=== PATIENT | male | born 1980 | race Caucasian/White ===

== ENCOUNTER 2023-01-01 09:27 | Day surgery (SDC) | payer OTHER, SELFPAY ==
[2023-01-01 09:58] VITALS: BP 145/98; PULSE 76; RESP 16; TEMP 36.4; O2SAT 97; BMI 34.1
[2023-01-01] MEDS: Lactated Ringers 1,000 ML 15 ML IV (10:02)
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
--- NOTE | 2023-01-01 10:44 | OP.COLON_ITS ---
Patient Name: Terrell Lemos Procedure Date: 01/01/2023 10:15 AM Date of : 1980 Age: 42 Procedure: Colonoscopy Indications: Rectal bleeding Providers: Dae Saldivar MD Medicines: See the Anesthesia note for documentation of the administered medications Patient Profile: Last Colonoscopy: none. The patient's first colonoscopy is today. Complications: No immediate complications. Procedure: Pre-Anesthesia Assessment: - Prior to the procedure, a History and Physical was performed, and patient medications and allergies were reviewed. The patient's tolerance of previous anesthesia was also reviewed. The risks and benefits of the procedure and the sedation options and risks were discussed with the patient. All questions were answered, and informed consent was obtained. Prior Anticoagulants: The patient has taken no anticoagulant or antiplatelet agents. ASA Grade Assessment: II - A patient with mild systemic disease. After reviewing the risks and benefits, the patient was deemed in satisfactory condition to undergo the procedure. After I obtained informed consent, the scope was passed under direct vision. Throughout the procedure, the patient's blood pressure, pulse, and oxygen saturations were monitored continuously. The colonoscope was introduced through the anus and advanced to the cecum, identified by appendiceal orifice and ileocecal valve. The colonoscopy was performed without difficulty. The patient tolerated the procedure well. The quality of the bowel preparation was good. The ileocecal valve and the appendiceal orifice were photographed. Scope In: 10:25:54 AM Scope Withdrawal Time 0 hours 9 minutes 20 seconds Scope Out: 10:38:15 AM Total Procedure Duration Time 0 hours 12 minutes 21 seconds Findings: The digital rectal exam findings include non-thrombosed internal hemorrhoids and internal hemorrhoids that prolapse with straining, but require manual replacement into the anal canal (Grade III). Pertinent negatives include normal prostate (size, shape, and consistency). The colon (entire examined portion) appeared normal. Impression: - Non-thrombosed internal hemorrhoids and internal hemorrhoids that prolapse with straining, but require manual replacement into the anal canal (Grade III) found on digital rectal exam. - The entire examined colon is normal. - No specimens collected. Recommendation: - Discharge patient to home. - Resume previous diet. - Continue present medications. - Repeat colonoscopy in 10 years for screening purposes. - Return to my office in 1 week. Total bleeding is felt secondary to internal hemorrhoidal bleeding. I will recommend to the patient consideration for surgical hemorrhoidectomy. We will have him return to the office to discuss this technique benefits and risks and complications. Procedure Code(s): --- Professional --- 78356, Colonoscopy, flexible; diagnostic, including collection of specimen(s) by brushing or washing, when performed (separate procedure) Diagnosis Code(s): --- Professional --- K64.2, Third degree hemorrhoids K62.5, Hemorrhage of anus and rectum CPT copyright 2021 [employer]. All rights reserved. The codes documented in this report are preliminary and upon senior software engineer review may be revised to meet current compliance requirements. Dae Saldivar MD 01/01/2023 10:43:38 AM This report has been signed electronically. Number of Addenda: 0 Note Initiated On: 01/01/2023 10:15 AM
[2023-01-01 10:45] VITALS: BP 129/91; BP 145/98; PULSE 87; RESP 16; TEMP 36.1; O2SAT 96
[2023-01-01 10:50] VITALS: BP 139/94; BP 145/98; PULSE 89; RESP 17; O2SAT 96
[2023-01-01 10:55] VITALS: BP 132/100; BP 145/98; PULSE 81; RESP 16; O2SAT 96
[2023-01-01 11:00] VITALS: BP 134/98; BP 145/98; PULSE 66; RESP 16; TEMP 36.1; O2SAT 96
[2023-01-01 11:21] VITALS: BP 145/98
== END 2023-01-01 11:22 | disposition home or self-care (01) ==
LOC: EN 09:30 → AC 09:31
PROVIDERS: PCP Internal Medicine; Referring Provider Internal Medicine; Visit Provider Surgery
PROC: 0DJD8ZZ Inspection of Lower Intestinal Tract, Via Natural or Artificial Opening Endoscopic (ICD-10-PCS; CPT 45378; principal; 2023-01-01 10:25)
DX: K62.5 Hemorrhage of anus and rectum (principal); K64.2 Third degree hemorrhoids
CPT/HCPCS: 45378; J7120

== ENCOUNTER 2023-04-24 06:00 | Day surgery (SDC) | payer OTHER, SELFPAY ==
[2023-04-08 15:14] LABS: Absolute Lymphocyte Count 1.74 X10^3/uL (0.83-4.51); Absolute Neutrophil Count 3.9 X10^3/uL (2.0-7.7); Basophil% 1.5 % (0-1); Eosinophil# 0.12 X10^3/uL; Eosinophils% 1.9 % (0-5); Hematocrit 46.1 % (40-54); Hemoglobin 15.1 g/dL (13.0-16.5); Lymphocyte # 1.74 X10^3/ul (0.83-4.51); Lymphocyte % 26.9 % (19-41); Mean Corp Hgb Conc 32.8 g/dL (32-36); Mean Corpuscular Hgb 29.2 pg (27.0-32.0); Mean Corpuscular Volume 89.2 fL (80-94); Monocyte# 0.55 X10^3/uL; Monocyte% 8.5 % (0-10); NRBC Flagged by Analyzer 0 % (0-5); Neutrophil # 3.89 X10^3/uL (2.7-7.7); Neutrophil % 60.3 % (47-70); Platelet Count 233 K/mm3 (150-450); RBC Distribution Width CV 12.3 % (11.6-14.6); RBC Distribution Width SD 40.5 fl (35.1-43.9); Red Blood Count 5.17 M/mm3 (4.6-6.2); White Blood Count 6.5 K/mm3 (4.4-11.0)
[2023-04-08 15:25] LABS: International Normalized Ratio 1.1; Partial Thromboplast Time 25.9 Seconds (24.1-36.2); Prothrombin Time (Protime)PT. 13.7 SECONDS (11.7-14.9)
[2023-04-08 15:36] LABS: ALB/GLOB Ratio 1.1 RATIO (0.9-2.4); AST(SGOT) 19 U/L (15-37); Alanine Aminotransfer ALT/SGPT 42 U/L (16-61); Albumin, Serum 4.2 g/dL (3.2-5.0); Alkaline Phosphatase 59 U/L (45-117); Anion Gap 5 (5-15); BUN 13 mg/dL (7-18); BUN/Creat Ratio 12.4 RATIO (10-20); Calcium,Total 9.1 mg/dL (8.5-10.1); Chloride 107 mmol/L (98-107); Creatinine, Serum 1.05 mg/dL (0.70-1.30); EST Glomerular Filtration Rate 83 mL/min (>60); Est Glom Filt Rate - Afr Amer 100 mL/min (>60); Globulin 3.7 g/dL (2.2-4.2); Glucose 92 mg/dL (74-106); Potassium 3.9 mmol/L (3.5-5.1); Protein, Total 7.9 g/dL (6.4-8.2); Sodium Level 139 mmol/L (136-145)
[2023-04-24] VITALS (8 sets, daily range): BP systolic 123–155; BP diastolic 62–99; PULSE 75–101; RESP 16–18; TEMP 36.3–36.9; O2SAT 96–100; BMI 35.9
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
[2023-04-24] MEDS: Lactated Ringers 1,000 ML 15 ML IV (06:43)
--- NOTE | 2023-04-24 07:16 | DCINST_ITS ---
Discharge Instructions Diet Discharge Diet: Light diet - advance as tolerated Activity Discharge Activity: May Not Drive (3 to 5 days.), May Shower and May Take a Tub Bath Lifting Restrictions: 10 pound weight lifting restriction Additional Activity Instructions:: May utilize warm soapy water sitz bath's for hygiene and comfort Dressing / Incision Additional Dressing/Incision Instructions:: May use gauze or absorptive pads as needed for any drainage Mineral oil 30 cc or 1 ounce daily mixed in juice or food daily for 1 week Fiber supplementation like the Metamucil that she was using continued daily You may utilize the provided Dibucaine ointment as needed for comfort every 2-4 hours to the affected area. For pain control you may utilize acetaminophen alternating with ibuprofen as needed. The prescription medicine is constipating and should be utilized as a backup. Follow Up Care Please Follow Up With: Dae Saldivar MD When: Please call [phone] for office follow-up in approximately 3 weeks Test Results: Test results from this visit will be discussed in further detail at your follow- up appointment, if applicable. Discharge Plan Admission Primary Reason for Your Visit: Bleeding hemorrhoids Attending Provider: Dae Saldivar Primary Care Provider: Ava Flores Discharge Orders/Prescriptions Prescriptions: New metronidazole 250 mg tablet 250 mg PO TID Qty: 15 0RF hydrocodone-acetaminophen 5-325 mg tablet 1 tab PO Q6H PRN (Reason: pain) 3 Days Qty: 10 0RF No Action NK Referrals / Follow Up: Ava Flores MD [Primary Care Provider] - Disposition Disposition (needs filled in before D/C Order can be placed): Home, Self Care
[2023-04-24] MEDS: Cefotetan 2 GM in 0.9% NS 100 ML IV (07:24)
--- NOTE | 2023-04-24 07:30 | HEM_PTH ---
PATIENT: SHILPA COTA LOC: [facility] [place]#:[id number] AGE/SX: 42/M ROOM: RE04/24/[address]: Dr. Dae Saldivar MD : 1980 BED: DIS: 04/24/2023 SPEC #: [id number] RECD: 04/24/23 09:44 STATUS: EVARISTO ROSEANNA #: [id number] ALBERTO: 04/24/23 07:[address]: Dae Saldivar DEPT: SURGICAL PATHOLOGY RECD BY: Camille Weinberg ENTERED: 04/24/23 09:44 SP TYPE: HEMORRHOID OTHR DR: Dr. Ava Flores MD Tissues: HEMORRHOIDS Procedures: Surgery Specimen Level III HEADER OPERATION: Hemorrhoidectomy PRE-OP DIAGNOSIS: Bleeding internal hemorrhoids TISSUE SUBMITTED: Hemorrhoids MICROSCOPIC DIAGNOSIS Hemorrhoids, hemorrhoidectomy: Submucosal vascular ectasia and focal thrombosis. AM:gail 04/25/2023 MICROSCOPIC DESCRIPTION Slides are reviewed. GROSS DESCRIPTION Received in fixative is one container labeled with the patient's name and designated hemorrhoids. The specimen consists of three variable sized pieces of engel mucosal tissue measuring in aggregate 3.5 x 3.5 x 1.5 cm. Sections reveal congested and hemorrhagic cut surfaces. Developer Programmer Analyst sections are submitted in one cassette. / SJ:rg 04/24/2023 TC:5 CPT: 64065
[2023-04-24] MEDS: BUPIVACAINE LIPOSOME/PF 20 ML VIAL OPERA.SITE (07:58)
[2023-04-24] MEDS: Bupivacaine Mpf 0.5% 30 ML VIAL (07:59)
[2023-04-24] MEDS: Dibucaine 30 GM Tube 1 APPLIC (08:11)
--- NOTE | 2023-04-24 08:28 | PCM.OPRPT ---
Report of Operation Date of Procedure: 04/24/23 Pre-Operative Diagnosis: Bleeding internal hemorrhoids Post-Operative Diagnosis: Same Surgery/Procedure Performed:: Multiple column surgical hemorrhoidectomy Description of Surgical Findings:: Timeout informed consent was obtained. 42-year-old gentleman was taken to the operating underwent general endotracheal intubation anesthesia. Cefotetan 2 g were given intravenously. He was then placed prone jackknife with careful shoulder padding and pelvic padding. The perianal area was carefully exposed with tape straps. Clipper Betadine prep performed. Inspection revealed that left posterior lateral there was a large protruding combination of internal and external hemorrhoid that was a very exuberant. I placed a speculum placed the very apical suture of 0 Vicryl secured the stalk then placed an apical suture of 2-0 chromic. Used a harmonic scalpel to excise the external combined internal component of the column. The sphincter mechanism was identified and protected. This was a large tissue resection. The mucosa was then approximated with a running 2-0 chromic. Inspection revealed anteriorly slightly right a second significant problem. In a similar fashion I placed an apical suture of 0 Vicryl and then a 2-0 chromic I used harmonic scalpel to excise that area. Right lateral there is a third area. Again I placed an apical securing suture of 0 Vicryl. Internally I ran the area of 2-0 chromic and then where the tissue became somewhat more exuberant externally I did a very limited resection of external and in him internal hemorrhoidal disease at that point used a harmonic scalpel to resect that. And approximated the mucosa with some interrupted 2-0 chromic's. Inspection revealed that the vast majority of the hemorrhoidal bulk had been removed and clearly the area that was bleeding has been removed. Dibucaine saturated gauze Vaseline gauze was inserted. Cover dry dressings applied. The perianal area was anesthetized with 25 cc of 0.5% Marcaine mixed with 20 cc of Exparel. Then dry cover draws applied. Sponge and instrument and needle counts were reported the surgeon to be correct. Blood loss was minimal. Specimen hemorrhoids. Drains none. Blood loss minimal. The patient was taken to recovery room satisfactory addition without apparent complication Dae Saldivar M.D., F.A.C.S. Surgeon: Dae Saldivar Type of Anesthesia: General and Local Anesthesiologist: Phi Rodgers
[2023-04-24] MEDS: Acetaminophen 325 MG Tablet 650 MG PO (09:54)
== END 2023-04-24 11:20 | disposition home or self-care (01) ==
LOC: SDC 06:02 → AC 06:03
PROVIDERS: Physician Assistant; PCP Internal Medicine; Referring Provider Surgery; Visit Provider Surgery
PROC: (CPT 46260; principal; 2023-04-24 07:15)
DX: K64.5 Perianal venous thrombosis (principal); F41.9 Anxiety disorder, unspecified; F17.220 Nicotine dependence, chewing tobacco, uncomplicated; Z79.899 Other long term (current) drug therapy
CPT/HCPCS: 46260; 00902; 36415; 80053; 85025; 85610; 85730; 88304; J7120; J2405